=== PATIENT | male | born 1965 | race Caucasian/White ===

== ENCOUNTER 2018-10-04 12:52 | Emergency (ER) | payer MEDICAID ==
[~2018-10-04] VITALS: Ht 170.2 cm; Wt 86.2 kg
[2018-10-04 12:54] VITALS: BP_SYST 128
[2018-10-04] MEDS ORDERED: NACL 0.9% 1,000 ML IV ONE (12:55)
[2018-10-04 13:30] LABS: BASOPHILS % (AUTO) 0.8 % (0.0-2.0); EOSINOPHILS # (AUTO) 0.2 K/uL (0.0-0.4); EOSINOPHILS % (AUTO) 3.2 % (0.0-4.0); HEMATOCRIT 45.4 % (36-54); LYMPHOCYTES % (AUTO) 17.1 % (20.5-51.5); MEAN CORPUSCULAR HEMOGLOBIN 30 pg (27-31); MEAN CORPUSCULAR HGB CONC 35 % (32-36); MEAN CORPUSCULAR VOLUME 84 fL (79.0-98.0); MONOCYTES # (AUTO) 0.4 K/uL (0.0-1.0); MONOCYTES % (AUTO) 6.1 % (1.7-9.3); NEUTROPHILS # (AUTO) 4.3 K/uL (1.8-7.7); NEUTROPHILS % (AUTO) 72.8 % (40.0-70.0); PLATELET COUNT (AUTO) 139 K/uL (130-430); RED BLOOD CELL COUNT(AUTO) 5.42 MIL/uL (4.2-6.2); RED CELL DISTRIBUTION WIDTH 13.6 % (9.0-15.0)
[2018-10-04 13:48] LABS: CALCIUM 8.8 mg/dL (8.4-11.0); CREATININE 0.92 mg/dL (0.55-1.30)
[2018-10-04 13:55] LABS: ALBUMIN 3.6 g/dL (3.4-4.8); TOTAL BILIRUBIN 0.6 mg/dL (0.0-1.0)
[2018-10-04 14:07] LABS: PROTHROMBIN TIME 10.3 SECS (9.5-12.5)
[2018-10-04 14:39] LABS: BILIRUBIN,URINE NEGATIVE (NEGATIVE); BLOOD, URINE NEGATIVE (NEGATIVE); CLARITY/URINE CLEAR (CLEAR); COLOR,URINE YELLOW (YELLOW); GLUCOSE,URINE NEGATIVE (NEGATIVE); KETONES,URINE NEGATIVE (NEGATIVE); LEUKOCYTE ESTERASE ,URINE NEGATIVE (NEGATIVE); NITRITE, URINE NEGATIVE (NEGATIVE); PROTEIN URINE NEGATIVE (NEGATIVE); UROBILINOGEN,URINE 0.2 (0.2-1.0)
[2018-10-04 15:30] VITALS: BP_SYST 135
== END 2018-10-04 15:26 | disposition home or self-care (01) ==
LOC: SED 12:52
DX: R55 Syncope and collapse (principal); M54.2 Cervicalgia
CPT/HCPCS: 36415; 71045; 80053; 81003; 82150; 82550; 83605; 83690; 83880; 84484; 85025; 85610; 85730; 87040; 93005; 99284; J7030

== ENCOUNTER 2020-08-06 21:01 | Emergency (ER) | payer MEDICAID ==
[~2020-08-06] VITALS: Ht 170.2 cm; Wt 81.6 kg
[2020-08-06 21:12] VITALS: BP_SYST 145
--- NOTE | 2020-08-06 21:18 | NUR ---
Patient to ER bed 3 to gown for evaluation. Side rails up.
--- NOTE | 2020-08-06 21:20 | NUR ---
Received patient to ER w/ c/o constipation for past several days. Introduced self to patient, positoned for comfort. Bed to low position sr up, continue to monitor. Patient resting quietly. No acute distress noted. Vital signs within normal range.
--- NOTE | 2020-08-06 21:20 | NUR ---
Dr. Smith bedside for pt eval
[2020-08-06] MEDS ORDERED: MAGNESIUM CITRATE 300 ML ORAL SOLUTION PO ONE (21:30)
--- NOTE | 2020-08-06 21:31 | NUR ---
Medicated w/ Magnesium Citrate po per MD orders. Will cont to monitor and observe for any adverse reaction. Bed to low position sr up.
--- NOTE | 2020-08-06 22:03 | NUR ---
Bedside Abd KUB done
[2020-08-06] MEDS ORDERED: MAGN24003 PO (22:05)
--- NOTE | 2020-08-06 22:21 | NUR ---
Patient given written and verbal discharge instructions and verbalizes understanding. ER discussed with patient the results and treatment provided. Patient in stable condition. ID arm band removed. Rx of MOM given. Patient educated on pain management and to follow up with PMD. Pain Scale 0. Opportunity for questions provided and answered. Medication side effect fact sheet provided. Addendum: 08/06/20 at 2223 by [email or web address] patient discharged by MD Smith
== END 2020-08-06 22:22 | disposition home or self-care (01) ==
LOC: SED 21:01
DX: K59.00 Constipation, unspecified (principal)
CPT/HCPCS: 74018; 99283